=== PATIENT | female | born 1955 | race Caucasian/White ===

== ENCOUNTER 2016-05-29 13:28 | Emergency (ER) | payer BC ==
--- NOTE | ~2016-05-29 | EKG ---
PATIENT: CHING EMJIA UNIT #: [id number] Ventricular Rate: 91 BPM Atrial Rate: 91 BPM P-R Interval: 134 ms QRS Duration: 74 ms Q-T Interval: 340 ms QTC Calculation(Bezet): 418 ms P Spooner: 81 degrees Calculated R Spooner: 65 degrees Calculated T Spooner: 67 degrees Diagnosis Line: Normal sinus rhythm with sinus arrhythmia Diagnosis Line: ST abnormality, possible digitalis effect Diagnosis Line: Abnormal ECG Diagnosis Line: No previous ECGs available Diagnosis Line: Confirmed by FAISAL ARNETT MD ([id number]) on Diagnosis Line: 05/30/2016 12:04:27 PM INTERPRETING MD: HOPE BELLE
--- NOTE | ~2016-05-29 | EKG ---
PATIENT: CHING MEJIA UNIT #: [id number] Ventricular Rate: 66 BPM Atrial Rate: 66 BPM P-R Interval: 146 ms QRS Duration: 80 ms Q-T Interval: 394 ms QTC Calculation(Bezet): 413 ms P Ingalls: 77 degrees Calculated R Ingalls: 52 degrees Calculated T Ingalls: 49 degrees Diagnosis Line: Normal sinus rhythm Diagnosis Line: Normal ECG Diagnosis Line: When compared with ECG of 29-MAY-2016 12:18, Diagnosis Line: No significant change was found Diagnosis Line: Confirmed by HO HOLMAN MD ([id number]) on 06/11/2016 Diagnosis Line: 11:45:47 AM INTERPRETING MD: RIVER BELLE
--- NOTE | ~2016-05-29 | CT16 ---
[facility] A Service of [facility] RADIOLOGY TEXT RESULTS PATIENT: CHING MEJIA LOCATION: SED : 51 UNIT #: [id number] AGE: [address]: Franky Batista MD SEX: F ORDER DR: [id number] [place] [id number] E MR#: [id number] Acc #: [id number] NAME: CHING MEJIA. : 1955 SEX: F STUDY DATE/TIME: 05/29/2016 13:41 UNIT: SED ROOM: STUDY DESCRIPTION: CT Angio Chest for PE Attending Physician: Franky Batista M.D. Referring Physician: Franky Batista M.D. Ordering Physician: Franky Batista M.D. Primary Care Physician: Jaylon Moore M.D. MEDICAL IMAGING REPORT This report is preliminary unless electronic signature is present. EXAM CT chest with contrast, pulmonary arteriography protocol, 05/29/2016. HISTORY 61-year-old female in the ED complaining of thoracic pain and shortness of air with dizziness and nausea. Symptoms began about 1 hour prior to arrival. TECHNIQUE CT examination of the chest with IV contrast using pulmonary arteriography protocol. 3-D CTA images of the pulmonary arteries were reformatted in multiple planes. This CT exam was performed with one or more of the following radiation dose reduction techniques: automatic exposure control, adjustment of mA and/or kV according to patient size, and iterative reconstruction. FINDINGS No pulmonary embolism is demonstrated. Thoracic aorta is normal in caliber with no aneurysm or dissection. Heart size is normal. No pericardial effusion. Lung images show mild centrilobular emphysema in the upper lobes. The lungs are clear, there is no pneumothorax or pleural effusion. No rib fracture or other chest wall lesion. Limited upper abdominal images are unremarkable. IMPRESSION 1. No acute abnormality within the chest. No evidence of pulmonary embolism. 2. Probable mild diffuse emphysematous changes in the upper lungs. Lungs clear. No pleural effusion. [facility] A Service [facility] RADIOLOGY TEXT RESULTS PATIENT: CHING MEJIA LOCATION: [facility] #: [id number] : 51 UNIT #: [id number] AGE: [address]: Franky Batista MD SEX: F ORDER DR: 1. Dictated by... Devonte Castellanos M.D. THIS IS AN ELECTRONICALLY VERIFIED REPORT Devonte Castellanos M.D. at 05/29/2016 10:42 PM ITZ/benedict TD: 05/29/2016 17:59 JOB #: [id number] MEDICAL IMAGING REPORT Page 1 of 1
[2016-05-29 12:50] LABS: BASOPHIL# 0.1 X10e3 (0-0.3); EOSINOPHIL# 0.1 X10e3 (0-0.7); EOSINOPHIL% 2.9 % (0.0-7.0); HEMATOCRIT 40.8 % (35.0-45.0); HEMOGLOBIN 14.1 gm/dL (12.0-16.0); LYMPHOCYTE# 1.6 X10e3 (1.0-3.5); LYMPHOCYTE% 32.1 % (17.0-45.0); MEAN CELL VOLUME 88.6 FL (83-96); MEAN CORPUSCULAR HEMOGLOBIN 30.7 PG (28-34); MEAN CORPUSCULAR HGB CONC 34.6 g/dL (30-36); MONOCYTE# 0.3 X10e3 (0-1.0); MONOCYTE% 6.6 % (3.0-12.0); NEUTROPHIL# 2.9 X10e3 (1.5-7.1); NEUTROPHIL% 57.4 % (40-75); PLATELET COUNT 282 X10e3 (140-420); RED BLOOD COUNT 4.61 X10e (3.90-5.30); RED CELL DISTRIBUTION WIDTH 13.2 % (11.0-15.5)
[2016-05-29 12:52] LABS: DIFF IND NO
[2016-05-29 13:00] LABS: POC - CKMB <1.0 ng/mL (0.0-7.9); POC - TROPONIN <0.05 ng/mL (<=0.05)
[2016-05-29 13:07] LABS: ALBUMIN SERUM 4.4 g/dL (3.5-5.0); BILIRUBIN, DIRECT 0.2 mg/dL (0.0-0.2); BILIRUBIN,INDIRECT 1.1 mg/dL (0.0-0.9); BILIRUBIN,TOTAL 1.3 mg/dL (0.2-2.0); BUN/CREATININE RATIO 13.63; CALCIUM SERUM 9.2 mg/dL (8.4-10.2); CREATININE SERUM 1.1 mg/dL (0.6-1.4); GLOM FILT RATE Estimated 53.4 mL/min (>60); POTASSIUM 4.1 mmol/L (3.5-5.1); PROTEIN TOTAL SERUM 7.5 g/dL (6.0-8.3)
[2016-05-29 13:21] LABS: URINE SOURCE CLEAN CATCH
[2016-05-29 13:23] LABS: URINE APPEARANCE CLEAR; URINE BILIRUBIN NEG (NEG); URINE BLOOD TRACE-LYSED (NEG); URINE COLOR YELLOW; URINE GLUCOSE NEG (NORM); URINE KETONE NEG (NEG); URINE LEUKOCYTE ESTERASE 1+ (NEG); URINE NITRATE NEG (NEG); URINE PH 5.5 (5-8); URINE PROTEIN NEG (NEG); URINE UROBILINOGEN 0.2 MG/DL (NORM)
[~2016-05-29 13:28] MED LIST: AMBIEN PO; BACLOFEN10 MG PO; DICYCLOMINE HCL20 MG PO; KETOPROFEN PO; PREDNISONE PO; ULTRAM PO
[2016-05-29 13:31] LABS: MICRO INDICATED? YES
[2016-05-29 13:32] LABS: URINE RBC 0-2 /[HPF] (0-2)
[2016-05-29 13:33] LABS: CULTURE INDICATED? YES; URINE BACTERIA 1+ (NEG); URINE SQUAMOUS EPITHELIAL CELL MODERATE /[HPF]; URINE YEAST PRESENT
[2016-05-29 13:34] LABS: URINE TRANSITIONAL EPI CELLS FEW /[HPF]
[2016-05-29 15:08] LABS: POC - CKMB <1.0 ng/mL (0.0-7.9); POC - TROPONIN <0.05 ng/mL (<=0.05)
== END 2016-05-29 16:05 | disposition home or self-care (01) ==
LOC: SED 13:28
PROVIDERS: Emergency Medicine
DX: N39.0 Urinary tract infection, site not specified (principal); F41.1 Generalized anxiety disorder; R09.1 Pleurisy; B37.3 Candidiasis of vulva and vagina; F17.210 Nicotine dependence, cigarettes, uncomplicated
CPT/HCPCS: 36415; 71275; 80048; 80076; 81003; 82553; 82947; 84484; 85025; 85379; 87086; 93005; 96374; 99284; J2405; Q9967